=== PATIENT | male | born 1950 | race Caucasian/White ===

== ENCOUNTER 2021-11-09 11:46 | Day surgery (SDC) | payer MEDICARE, OTHER ==
--- NOTE | 2021-11-09 08:08 | HP ---
DATE OF SURGERY: 11/09/2021 HISTORY OF PRESENT ILLNESS: The patient is a 71-year-old with early satiety. He had loss of 20 pounds the last three months or so. No specific food trigger. He felt like he was getting a locking up sensation in his epigastrium. Family history negative for esophageal or stomach cancer. Negative for colon cancer. Last colonoscopy 13 years or so ago. PAST MEDICAL HISTORY: Hypertension, reflux, diabetes, back and hip pain. History of some depression, hyperlipidemia, osteoarthritis. PAST SURGICAL HISTORY: Remote history of colonoscopy. Cholecystectomy. Hiatal hernia repair in the past. Knee replacement in the past. MEDICATIONS: Pravastatin, Fentanyl patch, metoclopramide, Trilipix, Ramipril, Ozempic, Prilosec, omeprazole, Metformin. ALLERGIES: NKDA. FAMILY HISTORY: Diabetes. SOCIAL HISTORY: Denies smoking or alcohol abuse. REVIEW OF SYSTEMS: Fourteen systems reviewed. No current chest pain or palpitations. Other systems negative or noncontributory as above and per preadmission questionnaire. PHYSICAL EXAMINATION: GENERAL: No acute distress. HEENT: Sclerae nonicteric. NECK: No JVD. CHEST: Equal excursion, nonlabored breathing. CVS: Regular rate and rhythm. ABDOMEN: Soft. No peritoneal signs. EXTREMITIES: No significant edema. NEURO: Alert, oriented, moving extremities symmetrically. RECTAL: Deferred timed to endoscopy exam. PSYCH: Appropriate mood and affect. IMPRESSION: Weight loss of unclear etiology, some vague aches, early satiety of unclear etiology, I feel the patient is in need of upper and lower endoscopy for evaluation. General risk of bleeding or infection, risk of bowel injury or perforation possibly requiring open procedure, risk of missed or nondiagnosis or incomplete exam possibly requiring barium enema, other studies or procedures. General risk of anesthesia or sedation, risk of bowel prep but not limited to, possibility of inability to diagnose the etiology of his symptoms. He understands and agrees to the planned procedure, will proceed with EGD and colonoscopy as an outpatient under MAC anesthesia.
[2021-11-09] MEDS ORDERED: Lactated Ringers 1,000 ML IV ONE (12:36)
[2021-11-09] MEDS ORDERED: Lactated Ringers 1,000 ML IV SCH (13:00)
[2021-11-09] MEDS ORDERED: DIPRIVAN 200 MG/20 ML IV ONE ×2 (13:48→14:16)
[2021-11-09] MEDS ORDERED: SUBLIMAZE 100 MCG/2 ML ONE (14:03)
[2021-11-09 15:30] VITALS: BP 140/90; PULSE 63
[2021-11-09 15:32] VITALS: O2SAT 96
--- NOTE | 2021-11-09 15:37 | OP ---
SURGERY DATE/TIME: 11/09/2021 1351 PREOPERATIVE DIAGNOSIS: History of weight loss, history of some vague abdominal aches, unclear etiology, need for upper and lower endoscopy. POSTOPERATIVE DIAGNOSES: 1) ASA Class III. 2) Very small hiatal hernia. 3) Mild gastritis. 4) Mild diverticulosis, few small diverticula. 5) Fair bowel prep. 6) No gross evidence of any polyps or masses endoscopically. 7) Withdrawal time around 8 minutes on colonoscope. PROCEDURES: 1) EGD with cold biopsy of the small bowel to evaluate for celiac sprue. 2) Cold biopsy body of the antrum to evaluate for Helicobacter pylori. 3) Colonoscopy to terminal ileum. 4) Retrograde Ileoscopy. 5) Random cold biopsies of the ileum to evaluate for microscopic ileitis. 6) Random cold biopsies of colon to evaluate for microscopic colitis. SURGEON: Dr. James Lino. FIELD RECORDER: Dr. Lucila Tavarez M.D., Family Practice Resident. ANESTHESIA: MAC. ESTIMATED BLOOD LOSS: Minimal. INDICATIONS: As noted above. Risks and benefits explained in detail and not limited to and consent obtained. DESCRIPTION OF PROCEDURE AND FINDINGS: The patient is taken to the operating room. MAC anesthesia introduced. After official time out and no disagreement with planned procedure, bite block positioned. Video gastroscope easily passed down the esophagus through the patent pylorus to the third portion of the duodenum. Third, second and first portion of the duodenum no gross evidence of any significant inflammation. No signs of any ulcers or masses. Cold biopsy taken to evaluate for celiac sprue. Good hemostasis noted. The scope pulled back in the stomach. He did have some gastric erythema, signs of some mild gastritis. Cold biopsy taken to evaluate for Helicobacter pylori. Good hemostasis noted. There were no signs of any obvious ulcers or masses. On retroflex there was a small hiatal hernia about 2.5 to 3 cm. Otherwise, the scope straightened. The gastroesophageal junction about 40 cm. Gastroesophageal junction was smooth. Z-line was crisp. There may have been just a slight possible early Schatzki's type ring but it did not appear to be causing any narrowing to warrant dilatation at this point. The remainder of the esophagus was grossly unremarkable. No signs of any masses or mucosal lesions. Attention then turned to colonoscopy. Digital rectal exam did not reveal any rectal masses. Video colonoscope inserted and passed up through the slightly tortuous sigmoid, descending, transverse, ascending colon around to the cecum. Appendiceal orifice and valve well visualized and photo documented. Scope passed up the terminal ileum. Retrograde Ileoscopy performed which was grossly unremarkable. Given his symptom complaints, random cold biopsies taken to evaluate for microscopic ileitis in the ileum. Good hemostasis noted. Scope pulled back into the colon. Random cold biopsies taken in the colon to evaluate for microscopic colitis. Otherwise, there is no evidence of any macroscopic inflammation, no signs of any large polyps, masses or obstructing lesions. Prep overall was fair. A little bit of liquidy stool that was suctioned out as well as possible throughout the colon. He had a few tiny, small diverticula in the left colon. There were no signs of any large polyps, masses or obstructing lesions. No obvious endoscopic visible source of his weight loss or vague aches. The scope is withdrawn. The patient tolerated the procedure well. There were no immediate complications. I will see him back in the office to discuss the findings in a couple of weeks as I will be out of town next week.
== END 2021-11-09 15:15 | disposition home or self-care (01) ==
LOC: SDC 11:46
PROVIDERS: ATTEND Surgery
DX: K44.9 Diaphragmatic hernia without obstruction or gangrene (principal); R63.4 Abnormal weight loss; R10.84 Generalized abdominal pain; K29.70 Gastritis, unspecified, without bleeding; K57.90 Diverticulosis of intestine, part unspecified, without perforation or abscess without bleeding; E11.9 Type 2 diabetes mellitus without complications
CPT/HCPCS: 82947; 99100; J2704; J3010

== ENCOUNTER 2023-09-26 09:51 | Day surgery (SDC) | payer MEDICARE ==
--- NOTE | 2023-09-26 09:55 | HP ---
PROCEDURE DATE: 09/26/2023 HISTORY OF PRESENT ILLNESS: 73 year-old with nausea, some vomiting. [place] like food gets stuck mid to lower esophagus. History of pancreatic cancer in the past. 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 PAST MEDICAL HISTORY: Hyperlipidemia, type 2 diabetes, arthritis, just some chronic back and abdominal pain, history of pancreatic cancer in the past. CURRENT MEDICATIONS: Ondansetron, Toujeo Max insulin pen, Ozempic, hydrocodone, Fentanyl, Fenofibrate, pravastatin, Metformin. ALLERGIES: NKDA. PAST SURGICAL HISTORY: Liver biopsy in the past, had partial pancreatectomy and splenectomy in the past, had cholecystectomy in the past, back surgery, and also knee scope in the past. FAMILY HISTORY: Heart disease. SOCIAL HISTORY: No smoking. Occasional alcohol use. REVIEW OF SYSTEMS: 12 systems reviewed. No chest pain or palpitations. Other systems negative or noncontributory other than above and per preadmission questionnaire. PHYSICAL EXAMINATION: Height 6', BMI 20.89. GENERAL: No acute distress. HEENT: Sclerae nonicteric. Extraocular movements intact. NECK: No JVD. CHEST: Equal excursion. Nonlabored breathing. CVS: Regular rate and rhythm. ABDOMEN: Soft. EXTREMITIES: No cyanosis or edema. NEURO: Alert and oriented, moving extremities symmetrically. PSYCH: Appropriate mood and affect. SKIN: Dry. IMPRESSION: 1. NAUSEA AND VOMITING, SOME DYSPHAGIA, FOOD STICKS IN THE MID TO LOWER ESOPHAGUS. IN NEED OF EGD, POSSIBLE BIOPSY, POSSIBLE DILATATION. Risks explained in detail, but not limited to, bleeding; infection; risk of bowel injury or perforation possibly requiring open procedure; risks of no improvement in swallowing possibly requiring other procedures, dilation, or referrals; possible risk of neurologic or functional problem and dilatation may not benefit or if dilatation performed with improved swallowing, might need to repeat again down the road. He understands all of the above as well as risks of sedation, but not limited. Will proceed with EGD, possible dilatation as an outpatient. Continue medications for hyperlipidemia, diabetes, and arthritis.
[2023-09-26] MEDS: Lactated Ringers 1,000 ML IV SCH (10:13)
[2023-09-26 10:23] LABS: Absolute Neutrophil Ct (ANC) 7.91 x10^3/uL (1.4-6.9); BASOPHIL % 0.4 % (0.0-0.4); Basophil (Absolute #) 0.04 x10^3/uL (0-0.4); Eosinophil % 1.2 % (0.00-5.0); Eosinophil (Absolute #) 0.13 x10^3/uL (0-0.5); Hematocrit 35.4 % (42-50); Hemoglobin 11.6 g/dL (12.5-18.0); IMMATURE GRAN # 0.11 x10^3u/L (0.00-0.03); IMMATURE GRAN % 1.1 % (0.00-0.4); Lymphocyte (Absolute #) 1.15 x10^3/uL (1.0-4.6); Mean Cell Volume 95.2 fL (78-100); Mean Corpuscular Hemoglobin 31.2 pg (26-32); Mean Corpuscular Hgb Concent. 32.8 g/dL (32-36); Monocyte (Absolute #) 1.07 x10^3/uL (0.0-1.3); Monocytes % 10.3 % (0.0-12.0); Platelet Count 368 x10^3/uL (150-450); Red Blood Count 3.72 x10^6/uL (4.1-5.6); Red Cell Distribution Width 14.1 % (11.5-14.0); White Blood Count 10.4 x10^3/uL (4.0-10.5)
[2023-09-26 10:34] VITALS: RESP 18
[2023-09-26 10:46] LABS: Calcium 9.9 mg/dL (8.4-10.2); Creatinine 1 1.32 mg/dL (0.66-1.25); Potassium 4.5 mmol/L (3.5-5.1)
[2023-09-26] MEDS ORDERED: Versed 2 MG/2 ML Injection ONE (12:10)
[2023-09-26] MEDS ORDERED: DIPRIVAN 200 MG/20 ML IV ONE (12:10)
[2023-09-26] MEDS ORDERED: Xylocaine-Mpf 2% 5 Ml Vial ONE (12:14)
[2023-09-26 13:15] VITALS: O2SAT 99
[2023-09-26 13:22] VITALS: BP 165/99; PULSE 74; TEMP 97
--- NOTE | 2023-09-26 14:22 | OP ---
SURGERY DATE: 09/26/2023 SURGERY TIME: 1218 PREOPERATIVE DIAGNOSIS: 1. HISTORY OF NAUSEA AND VOMITING. 2. HISTORY OF DYSPAGIA LOWER ESOPHAGUS. POSTOPERATIVE DIAGNOSIS: 1. DISTAL ESOPHAGITIS, SOME ULCERATION AND ESOPHAGEAL NARROWING DISTAL ESOPHAGUS AT THE GASTROESOPHAGEAL JUNCTION. 2. MILD GASTRIC ERYTHEMA, BIOPSY PENDING TO EVALUATE FOR EARLY GASTRITIS. PROCEDURE: 1. Esophagogastroduodenoscopy with cold biopsy of small bowel to evaluate for other cause of the nausea and vomiting. 2. Cold biopsy of the antrum to evaluate for Helicobacter pylori. 3. Cold biopsy distal esophagus to evaluate for esophagitis. 4. Distal esophageal dilation (size 20 balloon). SURGEON: Dr. James Lino. ANESTHESIA: MAC. ESTIMATED BLOOD LOSS: Minimal. INDICATIONS: As noted above. Consent obtained. DESCRIPTION OF PROCEDURE AND FINDINGS: The patient was taken to the OR. MAC anesthesia induced after official time-out for planned procedure. Bite block positioned. Video gastroscope passed down proximal esophagus down to distal esophagus and a short area segment of some narrowing and distal esophagitis with some ulceration. There was no javier mass, but cold biopsy was taken to evaluate for pathology. Scope passed through and around to the junction of the 3rd and 4th portion of the duodenum. Cold biopsy taken of the small bowel to evaluate for celiac sprue and to rule out other sources of his nausea and vomiting. The scope pulled back in the stomach. He did have some minimal to mild gastric erythema. Cold biopsy was taken to evaluate for pathology. On retroflex, the gastroesophageal junction was fairly snug against the scope. The scope was straightened. The gastroesophageal junction was at about 40 cm. Again, he had this distal esophageal narrowing and stenosis at this area of inflammation. It was felt he warranted dilatation given his symptoms. The remainder of the esophagus was fairly unremarkable. The scope passed back down into stomach. 20 balloon catheter was carefully inserted and then pulled back up to the narrowed area in the distal esophagus. It was carefully inflated first stage size 18 for 15-30 seconds, second stage for 30 seconds, final stage size 20 balloon dilated. The balloon was for 2 minutes inflated and then decompressed. The balloon catheter was removed. The scope was then passed back down in the stomach and gradually withdrawn and the narrowing seemed to be moderately improved. There was minimal mucosal abrasion. There did not appear to be any evidence of any gross full thickness issues. The scope was withdrawn. The patient tolerated the procedure well. There were no immediate complications. Findings discussed with the family out in the waiting area.
== END 2023-09-26 13:25 | disposition home or self-care (01) ==
LOC: SDC 09:51
PROVIDERS: ATTEND Surgery
DX: K22.2 Esophageal obstruction (principal); Z87.19 Personal history of other diseases of the digestive system; E11.9 Type 2 diabetes mellitus without complications; Z85.07 Personal history of malignant neoplasm of pancreas; K20.90 Esophagitis, unspecified without bleeding; K31.89 Other diseases of stomach and duodenum
CPT/HCPCS: 36415; 80048; 83036; 85025; 93005; 99100; C1726; J2250; J2704